=== PATIENT | female | born 2000 | race Caucasian/White ===

== ENCOUNTER → 2020-01-30 10:59 | Outpatient (BNVA) | payer SELFPAY | PROVIDERS: Visit Provider Emergency Medicine | DX: J03.90 Acute tonsillitis, unspecified (principal) | CPT/HCPCS: 87071; 87880 ==

== ENCOUNTER → 2021-04-14 14:04 | Outpatient (BNVA) | payer OTHER, SELFPAY | PROVIDERS: Visit Provider Nurse Practitioner Family | DX: J06.9 Acute upper respiratory infection, unspecified (principal); Z20.822 Contact with and (suspected) exposure to COVID-19 | CPT/HCPCS: 87635 ==

== ENCOUNTER 2023-02-25 12:37 | Emergency (ER) | payer MEDICAID, SELFPAY ==
[2023-02-25 12:45] VITALS: BP 145/102; PULSE 96; RESP 15; O2SAT 96; BMI 28.3
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
[2023-02-25 13:44] VITALS: BP 145/102; PULSE 84; RESP 16; O2SAT 95
[2023-02-25 14:19] VITALS: PULSE 75; RESP 18; TEMP 36.6; O2SAT 99
[2023-02-25 14:22] VITALS: BP 121/84
== END 2023-02-25 14:25 | disposition home or self-care (01) ==
PROVIDERS: Emergency Provider Emergency Medicine; PCP Family Medicine
DX: M54.2 Cervicalgia (principal); V89.2XXA Person injured in unspecified motor-vehicle accident, traffic, initial encounter
CPT/HCPCS: 70450; 72125; 99284

== ENCOUNTER 2023-10-01 15:42 | Outpatient (CLI) | payer MEDICAID, SELFPAY ==
[2023-10-01 15:42] VITALS: BMI 32.1
[2023-10-01 16:08] VITALS: BP 113/68; PULSE 93
[2023-10-01 16:23] VITALS: BP 108/64; PULSE 88
[2023-10-01 16:38] VITALS: BP 111/67; PULSE 89
[2023-10-01 16:53] VITALS: BP 113/68; PULSE 91
[2023-10-01 17:23] VITALS: BP 107/61; PULSE 90
== END 2023-10-01 17:26 | disposition home or self-care (01) ==
LOC: OPOB 15:44 → OBGYN 15:45 → OPOB 15:51 → OBGYN 15:52
PROVIDERS: PCP Family Medicine; Visit Provider Family Medicine
DX: O26.899 Other specified pregnancy related conditions, unspecified trimester (principal); Z3A.00 Weeks of gestation of pregnancy not specified
CPT/HCPCS: 59025; 99211